=== PATIENT | male | born 1960 | race Caucasian/White ===

== ENCOUNTER → 2020-09-03 | Outpatient (REF) | payer BC ==
[2020-09-03 19:24] LABS: MALB URINE SIEMENS 29.7 MG/L; MAU/CREAT RATIO 78.1 MCG/MG (0.0-30.0)
== END ==
LOC: M LAB REF 17:20
PROVIDERS: ATTEND Nurse Practitioner Family
DX: E11.65 Type 2 diabetes mellitus with hyperglycemia (principal)